=== PATIENT | male | born 1975 | race Two or more races ===

== ENCOUNTER → 2024-12-14 10:55 | Outpatient (CLI) | payer OTHER | END | disposition home or self-care (01) | LOC: NUCLEAR 10:55 | PROVIDERS: ATTEND Internal Medicine | DX: I50.9 Heart failure, unspecified (principal) ==

== ENCOUNTER 2025-08-02 12:43 | Outpatient (CLI) | payer OTHER | END 2025-08-02 12:51 | disposition home or self-care (01) | LOC: SONOGRAMA 12:43 | PROVIDERS: ATTEND Physical Medicine & Rehabilitation | DX: M79.651 Pain in right thigh (principal) ==